=== PATIENT | female | born 1940 | race Caucasian/White ===

== ENCOUNTER 2018-06-05 10:00 | Outpatient (RCR) | payer MEDICARE, BC, SELFPAY ==
[2018-05-22 10:50] VITALS: BP 144/98; PULSE 86; RESP 18; TEMP 36.4; BMI 24.5
--- NOTE | 2018-05-22 14:08 | PCM.WC.HP ---
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 Code(s): L97.912 - Non-pressure chronic ulcer of unspecified part of right lower leg with fat layer exposed (2) Edema leg Status: Chronic Code(s): R60.0 - Localized edema (3) Delayed wound healing Status: Chronic Code(s): T14.8XXD - Other injury of unspecified body region, subsequent encounter (4) Malnutrition Status: Chronic Code(s): E46 - Unspecified protein-calorie malnutrition History of Present Illness Date of Service: 05/25/18 Chief Complaint: Right leg ulcer History of Wound: This 78-year-old female presents with a nonhealing wound to the right ankle area with an onset of March 17, 2018 after a traumatic incident. She was initially seen in the emergency room in which 8 sutures were applied (Neil). This site did not remain intact and she further followed up at an urgent care center for infection and suture removal. She has been applying antibiotic ointment recently and completed her previous antibiotic course. Her pain to the site is mild and she denies redness or odor. She denies claudication. She does have some burning and tingling to her toes and the balls of the feet. She denies current back injuries or pain. She wears sandals today. Her primary care physician is Dr. Ojeda at the [facility]. She denies previous lab work. 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 Allergies: Fish Drive, lisinopril. Medications: Amlodipine, Advair, hydrochlorothiazide, Ventolin, sulfamethoxazole Surgical History: - - Reviewed Allergies/Adverse Reactions: Allergies fish derived Allergy (Verified 05/22/18 14:43) Swelling lisinopril Allergy (Verified 05/22/18 14:43) Shortness of breath Home Medications: Ambulatory Orders Medication Instructions Recorded Albuterol Inhaler [Ventolin Hfa 1 puff INHALATION Q4H PRN PRN 05/22/18 (SP)] Amlodipine [Norvasc] 5 mg PO DAILY 05/22/18 Fluticasone/Salmeterol [Advair 1 each IH PRN PRN 05/22/18 100-50 Diskus] Hydrochlorothiazide [Hctz] 25 mg PO DAILY 05/22/18 Lives: - - Home Smoking Status: Never smoker Tobacco Use: Non-smoker Review of Systems Constitutional: Denies: Chills, Fever, Weakness Cardiovascular: Denies: Chest Pain, Claudication Respiratory: Denies: Shortness of Breath Gastrointestinal: Denies: Nausea, Vomiting Musculoskeletal: Denies: Joint Tenderness, Leg Pain Skin: Reports: Skin Changes, Wounds Neurological: Reports: Numbness, Tingling - Physical Exam Vital Signs Temp Pulse Resp BP 97.5 F L 86 18 144/98 H 05/22/18 10:50 05/22/18 10:50 05/22/18 10:50 05/22/18 10:50 General: Alert, Oriented x3, Cooperative HEENT: Atraumatic Extremities: No cyanosis, Capillary Refill Less than 3 Seconds - All digits bilateral foot, No Calf Tenderness - Negative Tomasz and Pat sign, Edema - Mild bilateral lower extremity, Peripheral Pulses Normal - 2 out of 4 DP and PT pulses bilateral, Tenderness - Mild tenderness with right lower leg ulcer palpation and debridement Skin: Ulcer/ Wound - No purulence, no erythema, streaking, no odor, no acute signs of infection. There is no deep tissue exposure noted. The peripheral skin is atrophic and there is actually hair present to the leg at the periwound site Wound Measurements and Assessment WC - Nurse 1 - General Ulcer Measurement Start: 05/22/18 10:49 Freq: Status: Active Protocol: Activity Type Activity Date Activity User E-Sign Co-Sign Detail Recorded Client Recorded Date Recorded By Document 05/22/18 10:50 [id number] 05/22/18 11:06 05/22/18 10:50 Wound Center Nurse 1 [Ulcer Assessment] 1-right lateral arrington -Combined with other wound No -Current Size (cm) - Length 2.7 -Current Size (cm) - Width 0.3 -Current Size (cm) - Depth 0.1 -Total Square Cm 0.81 -Photo Taken Yes -Epithelialization Medium 34-66% -Tunneling No -Undermining/Tunneling No -Circular Undermining No -Classification - Thickness Full Thickness without Exposed Support Structure -Exudate Amt Small (1-33%) -Exudate Type Serosanguineous -Wound Margin Flat & Intact -Granulation Amt Small (1-33%) -Granulation Quality Red -Slough/Fibrin Yes -Necrosis Amt Large (67-100%) -Necrotic Tissue Type Adherent Slough -Structure Exposed N/A -Texture (Chiquita-wound Skin Appearance) Assessed Localized Edema Scarring -Moisture (Chiquita-wound Skin Appearance Assessed ) Dry/Scaly -Color (Chiquita-wound Skin Appearance) Assessed -Temperature (Chiquita-wound Skin No Abnormality Appearance) (Pt Warm) -Tenderness on Palpation (Chiquita-wound No Skin Appearance) -Ulcer Cleansing Rinsed/ Irrigated with Saline -Foul Odor after Cleansing No -Anesthetic Used 5% Lidocaine Gel [Edema Assessment] -Lower Limb Edema Present Yes -Right Calf (cm) 34.8 -Right Ankle (cm) 22.5 -Left Calf (cm) 32.3 -Left Ankle (cm) 21.0 WC - Nurse 2 - General Ulcer CM Notes Start: 05/22/18 10:49 Freq: Status: Active Protocol: Activity Type Activity Date Activity User E-Sign Co-Sign Detail Recorded Client Recorded Date Recorded By Document 05/22/18 11:29 [id number] 05/22/18 11:30 FELIPE 05/22/18 11:29 Wound Center Nurse 2 [Procedure/Treatment] 1-right lateral arrington -Time 11:29 -Correct Patient Yes -Correct Side, Site, Position Yes -Correct Procedure Yes -Procedure Performed Yes -Type of Procedure Debridement -Clinical Debridement Subcutaneous -Post Debridement Size (cm) - Length 2.8 -Post Debridement Size (cm) - Width 0.3 -Post Debridement Size (cm) - Depth 0.1 -Total Square Cm 0.84 -Wound/Ulcer Outcome Not Healed -Ulcer Cleansing Rinsed/ Irrigated with Saline -Foul Odor after Cleansing No -Bioengineered Tissue No -Bleeding Controlled with Pressure -Treatment Response Procedure Tolerated Well [See Physician Procedure note for Specifics] Pain Scale: 0-10 Numeric [Pain] -Is Patient Pain Free? Yes Musculoskeletal: No Tenderness to Palpation of Joints or Extremities, Muscle Wasting, - - Dorsal contraction of lesser toes bilateral with prominent metatarsal heads. No pain on palpation to the toes or metatarsal heads. 5 out of 5 ankle and digits muscle strength in all directions Neurological: - - Sensation is intact to light touch to foot and ankle dermatomes equal and symmetrical and intact to all sites with 10 g S-Arlen monofilament evaluation Psych/Mental Status: Normal Affect, Appropriate Debridement Note Post-Debridement Measurements/Treatment WC - Nurse 2 - General Ulcer CM Notes Start: 05/22/18 10:49 Freq: Status: Active Protocol: Activity Type Activity Date Activity User E-Sign Co-Sign Detail Recorded Client Recorded Date Recorded By Document 05/22/18 11:29 [id number] 05/22/18 11:30 FELIPE 05/22/18 11:29 Wound Center Nurse 2 1-right lateral arrington -Time 11:29 -Correct Patient Yes -Correct Side, Site, Position Yes -Correct Procedure Yes -Procedure Performed Yes -Type of Procedure Debridement -Clinical Debridement Subcutaneous -Post Debridement Size (cm) - Length 2.8 -Post Debridement Size (cm) - Width 0.3 -Post Debridement Size (cm) - Depth 0.1 -Total Square Cm 0.84 -Wound/Ulcer Outcome Not Healed -Ulcer Cleansing Rinsed/ Irrigated with Saline -Foul Odor after Cleansing No -Bioengineered Tissue No -Bleeding Controlled with Pressure -Treatment Response Procedure Tolerated Well Pain Scale: 0-10 Numeric Is Patient Pain Free? Yes Wound debrided: leg Laterality: Right Type of Debridement: Excisional debridement Anesthesia Used: 4% Lidocaine Solution Depth: in the subcutaneous layer Percentage of wound debrided: 100 Instrument Used: #15 blade Tissue Removed: fibrous, devitalized subcutaneous, biofilm, slough Severity: Fat Layer Exposed Amount of bleeding with debridement: Mild Bleeding Controlled with: Pressure Patient tolerated procedure well Assessment/Plan Assessment: Right ulcer leg with fat layer exposed, no infection. Delayed healing. Mild edema right leg. Malnutrition suspected Plan: I reviewed and discussed her case. We discussed the etiology of her wound formation and her comprehensive wound healing treatment plan today. Subcutaneous excisional debridement was performed as noted in the clinical panel. She was advised to apply a Minnie to this ulcer site daily to cleanse gently with soap and water. To wear light compression, Tubigrip. I advised her to elevate her limb while rest and to avoid idle standing or sitting. Baseline laboratory work was ordered including CBC and CMP and at her follow-up visit: Will be reviewed as the following: White blood cell count 3.3, creatinine 1.45, albumin 4.3, prealbumin 26.3, total protein 8.5. Recommend nutritional supplementation optimize healing in a prescription for Favian was provided. She understands serial debridements are necessary for optimal wound healing and I recommend she follows up at the wound healing center 1 week. If there is lack of healing noted with traditional wound care lower extremity vascular studies will be considered. She was reassured no local signs of infection or necrosis are noted. I answered all her questions.
[2018-05-22 15:21] LABS: Absolute Lymphocyte Count 0.65 X10^3/ul (0.83-4.51); Absolute Neutrophil Count 1.9 X10^3/uL (2.0-7.7); Eosinophil# 0.23 X10^3/uL; Eosinophils% 6.9 % (0-5); Hematocrit 42.3 % (37-47); Hemoglobin 13.9 g/dl (12.0-15.0); Lymphocyte # 0.65 X10^3/ul (4.0); Lymphocyte % 19.5 % (19-41); Mean Corp Hgb Conc 32.9 g/gl (32-36); Mean Corpuscular Hgb 33.9 pg (27.0-32.0); Mean Corpuscular Volume 103.2 fL (81-99); Mean Platelet Vol. 9.8 fl (6.2-12.0); Neutrophil # 1.85 X10^3/uL (2.7-7.7); Neutrophil % 55.3 % (47-70); Platelet Count 276 K/mm3 (150-450); RBC Distribution Width CV 14.5 % (11.6-14.6); RBC Distribution Width SD 54.5 fl (35.1-43.9); White Blood Count 3.3 K/mm3 (4.4-11.0)
[2018-05-22 15:24] LABS: POSITIVE COUNT NO; POSITIVE DIFFERENTIAL NO; POSITIVE MORPHOLOGY NO
[2018-05-22 15:43] LABS: AST(SGOT) 29 U/L (15-37); Alanine Aminotransfer ALT/SGPT 24 U/L (13-56); Albumin, Serum 4.3 g/dL (3.2-5.0); Alkaline Phosphatase 91 U/L (45-117); Anion Gap 12 (5-15); BUN 17 mg/dL (7-18); BUN/Creat Ratio 11.7 RATIO (10-20); Calcium,Total 9.8 mg/dL (8.5-10.1); Chloride 100 mmol/L (98-107); Creatinine, Serum 1.45 mg/dL (0.55-1.02); EST Glomerular Filtration Rate 37 mL/min (>60); Est Glom Filt Rate - Afr Amer 45 mL/min (>60); Estimated Creatinine Clearance 23.35 ml/min; Globulin 4.2 g/dL (2.2-4.2); Glucose 93 mg/dL (74-106); Potassium 4.4 mmol/L (3.5-5.1); Prealbumin 26.3 mg/dL (20.0-40.0); Protein, Total 8.5 g/dL (6.4-8.2); Sodium Level 138 mmol/L (136-145)
[2018-05-29 09:55] VITALS: BP 155/60; PULSE 98; RESP 18; TEMP 36.1; BMI 24.5
--- NOTE | 2018-05-29 11:14 | PN.PCM_ITS ---
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 Current Visit: Yes Code(s): L97.912 - Non-pressure chronic ulcer of unspecified part of right lower leg with fat layer exposed (2) Edema leg Status: Chronic Current Visit: Yes Code(s): R60.0 - Localized edema (3) Delayed wound healing Status: Chronic Current Visit: Yes Code(s): T14.8XXD - Other injury of unspecified body region, subsequent encounter (4) Malnutrition Status: Chronic Current Visit: Yes Code(s): E46 - Unspecified protein- calorie malnutrition Type of Wound Date of Service: 05/29/18 Chief Complaint: Right leg ulcer History of Wound: This 78-year-old female returns to clinic for a nonhealing wound to the right ankle area. She denies fever, chill, nausea, vomiting. She has applied Minnie daily as advised. She does drink Favian nutritional supplements as advised. She denies redness or streaking or odor. Progress of Wound: Improving - Physical Exam Vital Signs Temp Pulse Resp BP 97 F L 98 18 155/60 H 05/29/18 09:55 05/29/18 09:55 05/29/18 09:55 05/29/18 09:55 General: Alert, Oriented x3, Cooperative Extremities: No cyanosis, Capillary Refill Less than 3 Seconds, No Calf Tenderness - Negative Tomasz and Pat, Diminished Peripheral Pulses, Edema - Mild Skin: Ulcer/ Wound - No purulence, no erythema, streaking, no odor, no infection Wound Measurements and Assessment WC - Nurse 1 - General Ulcer Measurement Start: 05/22/18 10:49 Freq: Status: Active Protocol: Activity Type Activity Date Activity User E-Sign Co-Sign Detail Recorded Client Recorded Date Recorded By Document 05/29/18 09:55 RB [id number] 05/29/18 10:06 RB 05/29/18 09:55 Wound Center Nurse 1 [Ulcer Assessment] 1-right lateral arrington -Combined with other wound No -Current Size (cm) - Length 0.5 -Current Size (cm) - Width 0.2 -Current Size (cm) - Depth 0.1 -Total Square Cm 0.10 -Photo Taken No -Tunneling No -Undermining/Tunneling No -Circular Undermining No -Exudate Amt Small (1-33%) -Exudate Type Serosanguineous -Wound Margin Distinct, Outline Attached -Granulation Amt Medium (34-66%) -Granulation Quality [place] -Slough/Fibrin Yes -Necrosis Amt Small (1-33%) -Necrotic Tissue Type Adherent Slough -Structure Exposed N/A -Texture (Chiquita-wound Skin Appearance) Assessed -Moisture (Chiquita-wound Skin Appearance Assessed ) -Color (Chiquita-wound Skin Appearance) Assessed -Temperature (Chiquita-wound Skin No Abnormality Appearance) (Pt Warm) -Tenderness on Palpation (Chiquita-wound No Skin Appearance) -Ulcer Cleansing Rinsed/ Irrigated with Saline -Foul Odor after Cleansing No -Anesthetic Used 4% Lidocaine Solution [Edema Assessment] -Lower Limb Edema Present Yes -Right Calf (cm) 35.5 -Right Ankle (cm) 21 - Nurse 2 - General Ulcer CM Notes Start: 05/22/18 10:49 Freq: Status: Active Protocol: Activity Type Activity Date Activity User E-Sign Co-Sign Detail Recorded Client Recorded Date Recorded By Document 05/29/18 10:20 [email or web address] [id number] 05/29/18 10:21 05/29/18 10:20 Wound Center Nurse 2 [Procedure/Treatment] 1-right lateral arrington -Time 10:20 -Correct Patient Yes -Correct Side, Site, Position Yes -Correct Procedure Yes -Procedure Performed Yes -Type of Procedure Debridement -Clinical Debridement Subcutaneous -Post Debridement Size (cm) - Length 0.6 -Post Debridement Size (cm) - Width 0.3 -Post Debridement Size (cm) - Depth 0.1 -Total Square Cm 0.18 -Wound/Ulcer Outcome Not Healed -Ulcer Cleansing Rinsed/ Irrigated with Saline -Foul Odor after Cleansing No -Bioengineered Tissue No -Bleeding Controlled with Pressure -Treatment Response Procedure Tolerated Well [See Physician Procedure note for Specifics] Pain Scale: 0-10 Numeric [Pain] -Is Patient Pain Free? Yes Musculoskeletal: No Tenderness to Palpation of Joints or Extremities, Muscle Wasting Neurological: Sensory exam intact to light touch and pain Psych/Mental Status: Normal Affect, Appropriate Debridement Note Post-Debridement Measurements/Treatment - Nurse 2 - General Ulcer CM Notes Start: 05/22/18 10:49 Freq: Status: Active Protocol: Activity Type Activity Date Activity User E-Sign Co-Sign Detail Recorded Client Recorded Date Recorded By Document 05/22/18 11:29 [id number] 05/22/18 11:30 Document 05/29/18 10:20 [id number] 05/29/18 10:21 05/22/18 05/29/18 11:29 10:20 Wound Center Nurse 2 1-right lateral arrington -Time 11: 10:20 -Correct Patient Yes Yes -Correct Side, Site, Position Yes Yes -Correct Procedure Yes Yes -Procedure Performed Yes Yes -Type of Procedure Debridement Debridement -Clinical Debridement Subcutaneous Subcutaneous -Post Debridement Size (cm) - Length 2.8 0.6 -Post Debridement Size (cm) - Width 0.3 0.3 -Post Debridement Size (cm) - Depth 0.1 0.1 -Total Square Cm 0.84 0.18 -Wound/Ulcer Outcome Not Healed Not Healed -Ulcer Cleansing Rinsed/ Rinsed/ Irrigated with Irrigated with Saline Saline -Foul Odor after Cleansing No No -Bioengineered Tissue No No -Bleeding Controlled with Pressure Pressure -Treatment Response Procedure Procedure Tolerated Well Tolerated Well Pain Scale: 0-10 Numeric Is Patient Pain Free? Yes Yes Wound debrided: leg Laterality: Right Type of Debridement: Excisional debridement Anesthesia Used: 4% Lidocaine Solution Depth: in the subcutaneous layer Percentage of wound debrided: 100 Instrument Used: #15 blade Tissue Removed: fibrous, devitalized subcutaneous, biofilm, slough Severity: Fat Layer Exposed Amount of bleeding with debridement: Mild Bleeding Controlled with: Pressure Patient tolerated procedure well Assessment/Plan Active Problems Ulcer of right lower extremity with fat layer exposed (Chronic) Edema leg (Chronic) Delayed wound healing (Chronic) Malnutrition (Chronic) Assessment: Right ulcer leg with fat layer exposed, no infection. Delayed healing. Mild edema right leg. Malnutrition suspected Plan: I reviewed and discussed her case. We discussed the etiology of her wound formation and her comprehensive wound healing treatment plan today. Subcutaneous excisional debridement was performed as noted in the clinical panel. She was advised to apply a Minnie to this ulcer site daily to cleanse gently with soap and water. To wear light compression, Tubigrip. I advised her to elevate her limb while rest and to avoid idle standing or sitting. Baseline laboratory work was ordered including CBC and CMP and was reviewed as the following: White blood cell count 3.3, creatinine 1.45, albumin 4.3, prealbumin 26.3, total protein 8.5. Recommend nutritional supplementation optimize healing in a prescription for Favian was provided; to continue. She understands serial debridements are necessary for optimal wound healing and I recommend she follows up at the wound healing center 1 week. If there is lack of healing noted with traditional wound care lower extremity vascular studies will be considered. She was reassured no local signs of infection or necrosis are noted. I answered all her questions.
[2018-06-05 09:56] VITALS: BP 157/81; PULSE 89; RESP 18; TEMP 36.4; BMI 24.5
--- NOTE | 2018-06-05 13:12 | PCM.WC.PN ---
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 Current Visit: Yes Code(s): L97.912 - Non-pressure chronic ulcer of unspecified part of right lower leg with fat layer exposed (2) Edema leg Status: Chronic Current Visit: Yes Code(s): R60.0 - Localized edema (3) Delayed wound healing Status: Chronic Current Visit: Yes Code(s): T14.8XXD - Other injury of unspecified body region, subsequent encounter (4) Malnutrition Status: Chronic Current Visit: Yes Code(s): E46 - Unspecified protein-calorie malnutrition Type of Wound Date of Service: 06/05/18 Chief Complaint: Right leg ulcer History of Wound: This 78-year-old female returns to clinic for a nonhealing wound to the right ankle area. She denies fever, chill, nausea, vomiting. She has applied Minnie daily as advised. She does drink Favian nutritional supplements as advised. She denies redness or streaking or odor. Progress of Wound: Improving - Physical Exam Vital Signs Temp Pulse Resp BP 97.5 F L 89 18 157/81 H 06/05/18 09:56 06/05/18 09:56 06/05/18 09:56 06/05/18 09:56 General: Alert, Oriented x3, Cooperative Extremities: No cyanosis, Capillary Refill Less than 3 Seconds, No Calf Tenderness - Negative Tomasz and Pat sign right, Diminished Peripheral Pulses, Edema - very mild Skin: Ulcer/ Wound - No purulence, no erythema, streaking, no odor, no infection. Peripheral skin is atrophic with scant hair. Peripheral epithelialization is progressing very well Wound Measurements and Assessment WC - Nurse 1 - General Ulcer Measurement Start: 05/22/18 10:49 Freq: Status: Active Protocol: Activity Type Activity Date Activity User E-Sign Co-Sign Detail Recorded Client Recorded Date Recorded By Document 06/05/18 09:56 [id number] 06/05/18 10:04 RB 06/05/18 09:56 Wound Center Nurse 1 [Ulcer Assessment] 1-right lateral arrington -Combined with other wound No -Current Size (cm) - Length 1.5 -Current Size (cm) - Width 0.3 -Current Size (cm) - Depth 0.1 -Total Square Cm 0.45 -Photo Taken No -Epithelialization Large 67-100% -Tunneling No -Undermining/Tunneling No -Circular Undermining No -Classification - Thickness Full Thickness without Exposed Support Structure -Exudate Amt Small (1-33%) -Exudate Type Serosanguineous -Wound Margin Distinct, Outline Attached -Granulation Amt Large (67-100%) -Granulation Quality [place] -Slough/Fibrin Yes -Necrosis Amt Small (1-33%) -Necrotic Tissue Type Adherent Slough -Structure Exposed N/A -Texture (Chiquita-wound Skin Appearance) Assessed -Moisture (Chiquita-wound Skin Appearance Assessed ) -Color (Chiquita-wound Skin Appearance) Assessed -Temperature (Chiquita-wound Skin No Abnormality Appearance) (Pt Warm) -Tenderness on Palpation (Chiquita-wound No Skin Appearance) -Ulcer Cleansing Rinsed/ Irrigated with Saline -Foul Odor after Cleansing No -Anesthetic Used 4% Lidocaine Solution [Edema Assessment] -Lower Limb Edema Present Yes -Right Calf (cm) 36 -Right Ankle (cm) 21.8 WC - Nurse 2 - General Ulcer CM Notes Start: 05/22/18 10:49 Freq: Status: Active Protocol: Activity Type Activity Date Activity User E-Sign Co-Sign Detail Recorded Client Recorded Date Recorded By Document 06/05/18 10:22 [id number] 06/05/18 10:23 FELIPE 06/05/18 10:22 Wound Center Nurse 2 [Procedure/Treatment] 1-right lateral arrington -Time 10:22 -Correct Patient Yes -Correct Side, Site, Position Yes -Correct Procedure Yes -Procedure Performed Yes -Type of Procedure Debridement -Clinical Debridement Subcutaneous -Post Debridement Size (cm) - Length 0.3 -Post Debridement Size (cm) - Width 0.1 -Post Debridement Size (cm) - Depth 0.1 -Total Square Cm 0.03 -Wound/Ulcer Outcome Not Healed -Ulcer Cleansing Rinsed/ Irrigated with Saline -Foul Odor after Cleansing No -Bioengineered Tissue No -Bleeding Controlled with Pressure -Treatment Response Procedure Tolerated Well [See Physician Procedure note for Specifics] Pain Scale: 0-10 Numeric [Pain] -Is Patient Pain Free? Yes Musculoskeletal: No Tenderness to Palpation of Joints or Extremities, Muscle Wasting Neurological: Sensory exam intact to light touch and pain Psych/Mental Status: Normal Affect, Appropriate Debridement Note Post-Debridement Measurements/Treatment WC - Nurse 2 - General Ulcer CM Notes Start: 05/22/18 10:49 Freq: Status: Active Protocol: Activity Type Activity Date Activity User E-Sign Co-Sign Detail Recorded Client Recorded Date Recorded By Document 05/22/18 11:29 [id number] 05/22/18 11:30 Document 05/29/18 10:20 [id number] 05/29/18 10:21 Document 06/05/18 10:22 [id number] 06/05/18 10:23 05/22/18 05/29/18 06/05/18 11:29 10:20 10:22 Wound Center Nurse 2 1-right lateral arrington -Time 11:29 10:20 10:22 -Correct Patient Yes Yes Yes -Correct Side, Site, Position Yes Yes Yes -Correct Procedure Yes Yes Yes -Procedure Performed Yes Yes Yes -Type of Procedure Debridement Debridement Debridement -Clinical Debridement Subcutaneous Subcutaneous Subcutaneous -Post Debridement Size (cm) - Length 2.8 0.6 0.3 -Post Debridement Size (cm) - Width 0.3 0.3 0.1 -Post Debridement Size (cm) - Depth 0.1 0.1 0.1 -Total Square Cm 0.84 0.18 0.03 -Wound/Ulcer Outcome Not Healed Not Healed Not Healed -Ulcer Cleansing Rinsed/ Rinsed/ Rinsed/ Irrigated with Irrigated with Irrigated with Saline Saline Saline -Foul Odor after Cleansing No No No -Bioengineered Tissue No No No -Bleeding Controlled with Pressure Pressure Pressure -Treatment Response Procedure Procedure Procedure Tolerated Well Tolerated Well Tolerated Well Pain Scale: 0-10 Numeric Is Patient Pain Free? 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 Delayed healing. Mild edema right leg. Malnutrition suspected Plan: I reviewed and discussed her case. We discussed the etiology of her wound formation and her comprehensive wound healing treatment plan today. Subcutaneous excisional debridement was performed as noted in the clinical panel. She was advised to apply a Minnie to this ulcer site daily to cleanse gently with soap and water. To wear light compression, Tubigrip. I advised her to elevate her limb while rest and to avoid idle standing or sitting. Baseline laboratory work was ordered including CBC and CMP and was reviewed as the following: White blood cell count 3.3, creatinine 1.45, albumin 4.3, prealbumin 26.3, total protein 8.5. Recommend nutritional supplementation optimize healing in a prescription for Favian was provided; to continue. She understands serial debridements are necessary for optimal wound healing and I recommend she follows up at the wound healing center 1 week. If there is lack of healing noted with traditional wound care lower extremity vascular studies will be considered. She was reassured no local signs of infection or necrosis are noted. I answered all her questions.
== END 2018-06-09 23:59 ==
LOC: WC 10:00
PROVIDERS: Family Provider Internal Medicine; PCP Internal Medicine; Visit Provider Podiatrist
DX: S81.811A Laceration without foreign body, right lower leg, initial encounter (principal); W45.8XXA Other foreign body or object entering through skin, initial encounter; R60.0 Localized edema; I10 Essential (primary) hypertension; J45.909 Unspecified asthma, uncomplicated; Z79.899 Other long term (current) drug therapy
CPT/HCPCS: 11042; 36415; 80053; 84134; 85025; 99213; G0463

== ENCOUNTER 2018-06-11 10:07 | Outpatient (RCR) | payer MEDICARE, BC, SELFPAY ==
[2018-06-10 01:34] VITALS: BP 157/81; PULSE 89; RESP 18; TEMP 36.4
[2018-06-11 12:56] VITALS: BP 154/78; PULSE 93; RESP 18; TEMP 36.5
--- NOTE | 2018-06-11 14:05 | PCM.WC.PN ---
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: Resolved Current Visit: Yes Code(s): L97.912 - Non-pressure chronic ulcer of unspecified part of right lower leg with fat layer exposed (2) Edema leg Status: Chronic Current Visit: Yes Code(s): R60.0 - Localized edema (3) Delayed wound healing Status: Resolved Current Visit: Yes Code(s): T14.8XXD - Other injury of unspecified body region, subsequent encounter Type of Wound Date of Service: 06/11/18 Chief Complaint: Right leg ulcer History of Wound: This 78-year-old female returns to clinic for a nonhealing wound to the right ankle area. She denies fever, chill, nausea, vomiting. She has applied Minnie daily as advised. She does drink Favian nutritional supplements as advised. She denies redness or streaking or odor. She denies drainage and thinks the wound is healed today. Progress of Wound: Improving - Physical Exam Vital Signs Temp Pulse Resp BP 97.7 F L 93 18 154/78 H 06/11/18 12:56 06/11/18 12:56 06/11/18 12:56 06/11/18 12:56 General: Alert, Oriented x3, Cooperative Extremities: No cyanosis, Capillary Refill Less than 3 Seconds, No Calf Tenderness - Negative Tomasz and Pat right, Edema, Peripheral Pulses Normal Skin: Ulcer/ Wound - No purulence, no erythema, streaking, no odor, no infection. There is now full epithelialization at the previous right leg ulcer site and this is healed. The peripheral skin is dry and with scant hair. Wound Measurements and Assessment WC - Nurse 1 - General Ulcer Measurement Start: 06/11/18 12:56 Freq: Status: Active Protocol: Activity Type Activity Date Activity User E-Sign Co-Sign Detail Recorded Client Recorded Date Recorded By Document 06/11/18 12:56 [email or web address] [id number] 06/11/18 12:58 FLEIPE 06/11/18 12:56 Wound Center Nurse 1 [Ulcer Assessment] 1-right lateral arrington -Combined with other wound No -Current Size (cm) - Length 0 -Current Size (cm) - Width 0 -Current Size (cm) - Depth 0 -Total Square Cm 0 -Photo Taken Yes -Epithelialization Large 67-100% -Tunneling No -Undermining/Tunneling No -Circular Undermining No [Edema Assessment] -Lower Limb Edema Present Yes -Right Calf (cm) 35.6 -Right Ankle (cm) 22.3 - Nurse 2 - General Ulcer CM Notes Start: 06/11/18 12:56 Freq: Status: Active Protocol: Activity Type Activity Date Activity User E-Sign Co-Sign Detail Recorded Client Recorded Date Recorded By Document 06/11/18 13:09 [id number] 06/11/18 13:10 06/11/18 13:09 Wound Center Nurse 2 [Procedure/Treatment] 1-right lateral arrington -Correct Patient No -Correct Side, Site, Position No -Correct Procedure No -Procedure Performed No -Post Debridement Size (cm) - Length 0 -Post Debridement Size (cm) - Width 0 -Post Debridement Size (cm) - Depth 0 -Total Square Cm 0 -Wound/Ulcer Outcome Healed- Epithelialized [See Physician Procedure note for Specifics] Pain Scale: 0-10 Numeric [Pain] -Is Patient Pain Free? Yes Musculoskeletal: No Tenderness to Palpation of Joints or Extremities, Muscle Wasting, - - Compartments remain soft right lower extremity Neurological: Sensory exam intact to light touch and pain Psych/Mental Status: Normal Affect, Appropriate Debridement Note Post-Debridement Measurements/Treatment WC - Nurse 2 - General Ulcer CM Notes Start: 06/11/18 12:56 Freq: Status: Active Protocol: Activity Type Activity Date Activity User E-Sign Co-Sign Detail Recorded Client Recorded Date Recorded By Document 06/11/18 13:09 [id number] 06/11/18 13:10 06/11/18 13:09 Wound Center Nurse 2 1-right lateral arrington -Correct Patient No -Correct Side, Site, Position No -Correct Procedure No -Procedure Performed No -Post Debridement Size (cm) - Length 0 -Post Debridement Size (cm) - Width 0 -Post Debridement Size (cm) - Depth 0 -Total Square Cm 0 -Wound/Ulcer Outcome Healed- Epithelialized Pain Scale: 0-10 Numeric Is Patient Pain Free? Yes No debridement was completed today - Wound has healed Assessment/Plan Active Problems Edema leg (Chronic) Assessment: Right ulcer leg healed. Delayed healing. Mild edema right leg Plan: I reviewed and discussed her case. We discussed the etiology of her wound formation and her comprehensive wound healing treatment plan today. Debridement was not performed today because the wound has healed. She was advised to discontinue dressing care. I gave her a prescription for 20-30 mmHg knee-high compression stockings and she was advised on proper use. A donning device is also ordered. She can transition out of the Tubigrip's into these compression stockings as tolerated. Applying CeraVe or Eucerin lotion daily. She was encouraged that there is no ulcer or infection noted today. It is okay to discontinue nutritional supplementation at this time his wound is healed. I recommend she maintain good skin integrity by Baseline laboratory work was ordered including CBC and CMP and was reviewed as the following: White blood cell count 3.3, creatinine 1.45, albumin 4.3, prealbumin 26.3, total protein 8.5. Recommend nutritional supplementation optimize healing in a prescription for Favian was provided; to continue. She is discharged at this time from the wound healing center because the wound has healed. To follow-up in the future at the foot and ankle center if she has any additional lower extremity concerns. I answered all her questions.
== END 2018-07-10 23:59 ==
LOC: WC 10:07
PROVIDERS: Family Provider Internal Medicine; PCP Internal Medicine; Referring Provider Podiatrist; Visit Provider Podiatrist
DX: Z09 Encounter for follow-up examination after completed treatment for conditions other than malignant neoplasm (principal); R60.0 Localized edema
CPT/HCPCS: 99213; G0463

== ENCOUNTER → 2022-12-25 | Outpatient (CLI) | payer MEDICARE, SELFPAY ==
[2022-12-28 17:07] LABS: Calprotectin, Stool 38 ug/g (0-120)
== END | disposition home or self-care (01) ==
PROVIDERS: PCP Internal Medicine; Referring Provider Nurse Practitioner Adult Health; Visit Provider Nurse Practitioner Adult Health
DX: K52.9 Noninfective gastroenteritis and colitis, unspecified (principal); D84.9 Immunodeficiency, unspecified
CPT/HCPCS: 83630; 83993; 87493; 87506